=== PATIENT | female | born 1975 | race Asian ===

== ENCOUNTER 2018-11-13 08:31 | Emergency (ER) | payer OTHER ==
[~2018-11-13] VITALS: Ht 157.5 cm; Wt 59.0 kg
[2018-11-13 08:40] VITALS: BP 108/71
[2018-11-13 09:56] VITALS: BP 114/42
== END 2018-11-13 09:56 | disposition home or self-care (01) ==
LOC: MED 08:31
DX: J45.909 Unspecified asthma, uncomplicated (principal); Z76.0 Encounter for issue of repeat prescription
CPT/HCPCS: 99283

== ENCOUNTER 2019-02-20 08:16 | Outpatient (CLI) | payer OTHER ==
[2019-02-20 08:56] LABS: BASOPHILS % (AUTO) 0.4 % (0.0-2.0); EOSINOPHILS # (AUTO) 0.2 K/uL (0-0.4); EOSINOPHILS % (AUTO) 2.5 % (0.0-4.0); HEMOGLOBIN 14.2 g/dL (12.0-16.0); LYMPHOCYTES # (AUTO) 1.6 K/uL (2.5-16.5); LYMPHOCYTES % (AUTO) 21.9 % (20.5-51.1); MEAN CORPUSCULAR HEMOGLOBIN 30 pg (27-31); MEAN CORPUSCULAR HGB CONC 33 g/dL (33-37); MEAN CORPUSCULAR VOLUME 90.7 fL (80-94); MONOCYTES # (AUTO) 0.5 K/uL (0.8-1.0); MONOCYTES % (AUTO) 6.3 % (1.7-9.3); NEUTROPHILS # (AUTO) 5.1 K/uL (1.8-7.7); NEUTROPHILS % (AUTO) 68.9 % (42.2-75.2); PLATELET COUNT (AUTO) 261 K/uL (140-450); RED BLOOD CELL COUNT(AUTO) 4.74 MIL/uL (4.20-5.40); RED CELL DISTRIBUTION WIDTH 13.3 % (11.6-13.7); WHITE BLOOD COUNT (AUTO) 7.4 K/uL (4.8-10.8)
[2019-02-20 09:04] LABS: ANION GAP 11.6 (8-16); CARBON DIOXIDE 26.5 mmol/L (21-32); CREATININE 0.6 mg/dL (0.6-1.3); POTASSIUM 4.1 mmol/L (3.5-5.1)
[2019-02-20 09:19] LABS: ALBUMIN 3.4 g/dL (3.4-5.0); CHOL/HDL RATIO 2.9 (1-4.5); THYROID STIMULATING HORMONE 1.28 uIU/mL (0.34-3.74); TOTAL BILIRUBIN 0.3 mg/dL (0.0-1.0)
== END 2019-02-20 20:28 | disposition home or self-care (01) ==
LOC: MLB 08:16
PROVIDERS: ATTEND Internal Medicine Geriatric Medicine
DX: Z00.00 Encounter for general adult medical examination without abnormal findings (principal); J45.909 Unspecified asthma, uncomplicated
CPT/HCPCS: 36415; 80053; 84443; 85025

== ENCOUNTER 2019-07-08 08:02 | Emergency (ER) | payer OTHER ==
[~2019-07-08] VITALS: Ht 154.9 cm; Wt 62.1 kg
[2019-07-08 08:08] VITALS: BP 105/70
--- NOTE | 2019-07-08 08:19 | NUR ---
C/O R KNEE PAIN RADIATING TO R CALF 5/10 & DULL X4 MONTHS. PT STATES SHE TWISTED HER KNEE WHILE AT WORK (WORKS RN AT [employer]) ABOUT 4 MONTHS AGO AND HAS BEEN HAVING INTERMITTENT PAIN SINCE THEN. PAIN NOW STARTED RADIATING TO RIGHT CALF WHICH PROMPTED HER TO SEEK TX. NO OBVIOUS DEFORMITIES. STEADY GAIT. MILD ANT RT KNEE SWELLING NOTED. NO ERYTHEMA. HX: ASTHMA RX: ALBUTEROL
--- NOTE | 2019-07-08 08:20 | NUR ---
EVALUATING PT AT BEDSIDE.
[2019-07-08 08:41] VITALS: BP 105/70
== END 2019-07-08 08:40 | disposition home or self-care (01) ==
LOC: MED 08:02
DX: S76.812A Strain of other specified muscles, fascia and tendons at thigh level, left thigh, initial encounter (principal); J45.909 Unspecified asthma, uncomplicated; Z91.013 Allergy to seafood; X50.1XXA Overexertion from prolonged static or awkward postures, initial encounter; Y93.89 Activity, other specified; Y92.89 Other specified places as the place of occurrence of the external cause; Y99.8 Other external cause status
CPT/HCPCS: 99282

== ENCOUNTER 2019-07-20 09:35 | Outpatient (CLI) | payer OTHER | END 2019-07-20 19:58 | disposition home or self-care (01) | LOC: MRD 09:35 | PROVIDERS: ATTEND Internal Medicine Geriatric Medicine | DX: M25.561 Pain in right knee (principal) | CPT/HCPCS: 73562 ==

== ENCOUNTER 2019-09-23 05:25 | Emergency (ER) | payer OTHER ==
[~2019-09-23] VITALS: Ht 157.5 cm; Wt 61.2 kg
[2019-09-23 05:36] VITALS: BP 112/49
--- NOTE | 2019-09-23 05:39 | NUR ---
PT AMBULATED TO ER BED 7
[2019-09-23] MEDS ORDERED: ALBUTEROL SULFATE/IPRATROPIU 3 ML SOL IH ONE (05:40)
[2019-09-23] MEDS ORDERED: ALBUTEROL 0.083% 2.5 MG/3 ML NEBU INH ONE (05:40)
[2019-09-23] MEDS ORDERED: methylPREDNISolone SS 125 MG in WATER STERILE 2 ML IM ONE (05:40)
--- NOTE | 2019-09-23 05:49 | NUR ---
dr. luis bedside evaluating pt
--- NOTE | 2019-09-23 05:49 | NUR ---
44 Y/O FEMALE PRESENTS TO ED, C/O BODILY FLUIDS SPLASH ON EYES. PT STATES SHE WAS ATTENDING PT WITH A T-BAR TRACH AT HOSPITAL, FLUIDS INSIDE T-BAR SPLASHED INTO PT'S EYES. PT DENIES ANY PAIN. PT DENIES ANY BLURRY VISION. PT ABLE TO AMBULATE WITH SLOW STEADY GAIT. PT AT STABLE CONDITION. ERMD AWARE. WILL CONTINUE TO MONITOR.
[2019-09-23 05:55] VITALS: BP 112/49
--- NOTE | 2019-09-23 05:55 | NUR ---
PT DISCHARGED WITH PAPERWORK. NO MEDICATION RX PROVIDED. EDUCATED PT REGARDING D/C DIAGNOSIS AND INSTRUCTIONS. PT VERBALIZED UNDERSTANDING OF TEACHING. TOLD PT TO FOLLOW UP WITH PCP. PT AT STABLE CONDITION. ALL QUESTIONS ANSWERED.
== END 2019-09-23 05:55 | disposition home or self-care (01) ==
LOC: MED 05:25
DX: J45.909 Unspecified asthma, uncomplicated (principal); Z77.21 Contact with and (suspected) exposure to potentially hazardous body fluids; Z91.013 Allergy to seafood
CPT/HCPCS: 99281

== ENCOUNTER 2020-02-13 07:58 | Emergency (ER) | payer OTHER ==
[~2020-02-13] VITALS: Ht 157.5 cm; Wt 60.3 kg
[2020-02-13 08:00] VITALS: BP 128/75
--- NOTE | 2020-02-13 08:12 | NUR ---
C/O R occular contact with bodily fluids approx. 0730 am today from a patient. Pt states she was removing an IV and had a small drop of what she thinks was blood splatter in her eye. Pt does not know if the patient she was caring for has any blood transmitted illnessed. denies pain to R eye or blurry vision to R eye. Bed in low position, side rail up x1.
--- NOTE | 2020-02-13 08:19 | NUR ---
Dr. Kwong at bedside evaluating pt
--- NOTE | 2020-02-13 08:29 | NUR ---
VISUAL ACUITY PERFORMED -- OD 20/40, OS 20/70, OU 20/40. PT REPORTS WEARING EYEGLASSES ON A REGULAR BASIS BUT DOES NOT HAVE THEM WITH HER AT THIS TIME.
--- NOTE | 2020-02-13 08:33 | NUR ---
BLOOD DRAW COMPLETE BY PHLEBOTOMY AT BEDSIDE.
[2020-02-13 08:34] VITALS: BP 128/75
--- NOTE | 2020-02-13 08:34 | NUR ---
Patient discharged with v/s stable. Written and verbal after care instructions given and explained. Patient verbalized understanding. Ambulatory with steady gait. All questions addressed prior to discharge. Advised to follow up with PMD.
[2020-02-15 06:08] LABS: HEPATITIS B SURFACE ANTIBODY Reactive (.); HEPATITIS B SURFACE ANTIGEN Negative (Negative); HEPATITIS C VIRUS ANTIBODY <0.1 s/co ratio (0.0-0.9)
[2020-02-15 16:51] LABS: HEPATITIS B CORE AB TOTAL POSITIVE (NEGATIVE)
== END 2020-02-13 08:34 | disposition home or self-care (01) ==
LOC: MED 07:58
DX: S05.91XA Unspecified injury of right eye and orbit, initial encounter (principal); J45.909 Unspecified asthma, uncomplicated; Z77.21 Contact with and (suspected) exposure to potentially hazardous body fluids; Z91.013 Allergy to seafood; X58.XXXA Exposure to other specified factors, initial encounter; Y93.89 Activity, other specified; Y92.89 Other specified places as the place of occurrence of the external cause; Y99.8 Other external cause status
CPT/HCPCS: 36415; 86592; 86702; 86704; 86706; 86803; 87340; 99283

== ENCOUNTER 2020-04-16 07:57 | Outpatient (CLI) | payer OTHER ==
[2020-04-16 09:11] LABS: BASOPHILS % (AUTO) 0.2 % (0.0-2.0); EOSINOPHILS # (AUTO) 0.2 K/uL (0-0.4); EOSINOPHILS % (AUTO) 2.8 % (0.0-4.0); HEMATOCRIT 44.9 % (36-48); LYMPHOCYTES # (AUTO) 1.7 K/uL (2.5-16.5); LYMPHOCYTES % (AUTO) 24.4 % (20.5-51.1); MEAN CORPUSCULAR HEMOGLOBIN 31 pg (27-31); MEAN CORPUSCULAR HGB CONC 33 g/dL (33-37); MEAN CORPUSCULAR VOLUME 93.5 fL (80-94); MONOCYTES # (AUTO) 0.6 K/uL (0.8-1.0); MONOCYTES % (AUTO) 7.9 % (1.7-9.3); NEUTROPHILS # (AUTO) 4.6 K/uL (1.8-7.7); NEUTROPHILS % (AUTO) 64.7 % (42.2-75.2); PLATELET COUNT (AUTO) 224 K/uL (140-450); WHITE BLOOD COUNT (AUTO) 7.1 K/uL (4.8-10.8)
[2020-04-16 10:09] LABS: ALBUMIN 3.1 g/dL (3.4-5.0); CREATININE 0.8 mg/dL (0.6-1.3); THYROID STIMULATING HORMONE 1.33 uIU/mL (0.34-3.74); TOTAL BILIRUBIN 0.3 mg/dL (0.0-1.0)
[2020-04-16 11:07] LABS: CHOL/HDL RATIO 3.8 (1-4.5)
== END 2020-04-16 20:49 | disposition home or self-care (01) ==
LOC: MLB 07:57
PROVIDERS: ATTEND Internal Medicine Geriatric Medicine
DX: Z01.419 Encounter for gynecological examination (general) (routine) without abnormal findings (principal)
CPT/HCPCS: 36415; 80053; 82306; 84443; 85025

== ENCOUNTER 2020-05-15 10:05 | Emergency (ER) | payer OTHER, SELFPAY ==
[~2020-05-15] VITALS: Ht 157.5 cm; Wt 60.3 kg
[2020-05-15 10:20] VITALS: BP 140/77
--- NOTE | 2020-05-15 10:48 | NUR ---
Dr Doty in tent examining pt
--- NOTE | 2020-05-15 10:53 | NUR ---
SWAB [id number] COLLECTED
[2020-05-15 11:05] VITALS: BP 140/77
== END 2020-05-15 11:04 | disposition home or self-care (01) ==
LOC: MED 10:05 → EEVIPCON 10:05 → MED 11:04
DX: J02.9 Acute pharyngitis, unspecified (principal); R07.9 Chest pain, unspecified; R06.02 Shortness of breath; J45.909 Unspecified asthma, uncomplicated; Z20.828 Contact with and (suspected) exposure to other viral communicable diseases
CPT/HCPCS: 99283; U0003